=== PATIENT | male | born 1995 | race Caucasian/White ===

== ENCOUNTER 2021-01-06 01:38 | Emergency (ER) | payer OTHER ==
[~2021-01-06] VITALS: Ht 172.7 cm; Wt 170.0 kg
[2021-01-06 02:50] LABS: BASOPHILS % (AUTO) 0 % (0-10); EOSINOPHILS # (AUTO) 0.4 10^3/uL (0.0-0.3); EOSINOPHILS % (AUTO) 4 % (0-10); HEMATOCRIT 43 % (40-54); HEMOGLOBIN 13.4 g/dL (13.3-17.7); LYMPHOCYTES # (AUTO) 3.1 10^3/uL (1.0-4.0); LYMPHOCYTES % (AUTO) 35 % (12-44); MEAN CORPUSCULAR HEMOGLOBIN 27 pg (25-34); MEAN CORPUSCULAR HGB CONC 32 g/dL (32-36); MEAN CORPUSCULAR VOLUME 84 fL (80-99); MEAN PLATELET VOLUME 11.1 fL (9.0-12.2); MONOCYTES # (AUTO) 0.6 10^3/uL (0.0-1.0); MONOCYTES % (AUTO) 7 % (0-12); NEUTROPHILS # (AUTO) 4.8 10^3/uL (1.8-7.8); NEUTROPHILS % (AUTO) 54 % (42-75); PLATELET COUNT 255 10^3/uL (130-400)
[2021-01-06 02:54] LABS: ALBUMIN 4.1 GM/DL (3.2-4.5)
--- NOTE | 2021-01-06 02:54 | ED Cardiac General ---
History of Present Illness General Chief Complaint: Cardiac/General Problems Stated Complaint: CHEST FLUTTER,MIGRAINE,SOB Nursing Triage Note: TO ED VIA POV AND AMBULATORY TO ROOM 8 WITH C/O CHEST FEELS "FLUTTERY" SINCE YESTERDAY SOMETIME, COULD NOT GIVE SPECIFIC TIMEFRAME AND BILATERAL SWOLLEN FEET. Source: patient Exam Limitations: no limitations History of Present Illness Date Seen by Provider: January 06, 2021 Time Seen by Provider: 02:24 Initial Comments Patient presents ER by private conveyance from home with chief complaint for the past 4 hours has been having some flutters like butterflies across the top of his chest. He said he has not had this before. He does not have a history of heart or lung disease. No shortness of air presently. He still having some of these palpitations during his ER stay at nursing reports were not captured on telemetry or EKG. He has not followed with a doctor for about 2 years. He used to be on medications for ADHD and depression. He has not followed with a doctor since moving here from [place]. He says he wanted to go to school so he came to the area but has not completed his GED. He is not having any nausea sweats fever chills diarrhea or constipation. He also is concerned about the swelling in his feet that he recently noticed. He does not smoke and has no known history of heart disease, hyperlipidemia, hypertension, diabetes. Allergies and Home Medications Allergies Coded Allergies: No Known Drug Allergies (Unverified , 01/06/21) Patient Home Medication List Home Medication List Reviewed: Yes Review of Systems Review of Systems Constitutional: No chills, No fever EENTM: No Eye Pain, No Ear Pain Respiratory: Denies Cough, Denies Shortness of Air Cardiovascular: See HPI; Denies Chest Pain, Denies Lightheadedness; Palpitations Gastrointestinal: Denies Abdominal Pain, Denies Nausea Genitourinary: Denies Burning, Denies Discharge Musculoskeletal: No back pain, No joint pain All Other Systems Reviewed Negative Unless Noted: Yes Past Fxzmnbl-Zfwrfl-Gqcsot Hx Patient Social History Alcohol Use: Rarely Uses Smoking Status: Never a Smoker Recent Infectious Disease Expo: No Past Medical History Surgeries: Yes Tonsillectomy Respiratory: No Cardiac: No Neurological: No Genitourinary: No Gastrointestinal: No Musculoskeletal: No Endocrine: No HEENT: No Cancer: No Psychosocial: Yes ADD/ADHD, Depression Integumentary: No Blood Disorders: No Physical Exam Vital Signs Vital Signs - First Documented 01/06/21 02:06 Temp 36.8 Pulse 99 Resp 20 B/P (MAP) 179/97 (124) O2 Delivery Room Air Capillary Refill : Less Than 3 Seconds Height, Weight, BMI Height: '" Weight: lbs. oz. kg; 56.00 BMI Method: General Appearance: No Apparent Distress (Pleasant), Obese (Morbidly obese) HEENT: PERRL/EOMI, Pharynx Normal, Moist Mucous Membranes Neck: Full Range of Motion, Normal Inspection Respiratory: Lungs Clear, Normal Breath Sounds, No Accessory Muscle Use, No Respiratory Distress Cardiovascular: Regular Rate, Rhythm, No Edema (Bilateral lower extremities were consistent with the rest of his body habitus and no edema is appreciated on clinical exam), Normal Peripheral Pulses Gastrointestinal: Normal Bowel Sounds, Non Tender, Soft Extremity: Normal Capillary Refill, Normal Inspection, No Pedal Edema Neurologic/Psychiatric: Alert, Oriented x3 Skin: Normal Color, Warm/Dry Progress/Results/Core Measures Results/Orders Lab Results Laboratory Tests Test 01/06/21 02:05 01/06/21 02:47 Range/Units White Blood Count 9.0 4.3-11.0 10^3/uL Red Blood Count 5.04 4.30-5.52 10^6/uL Hemoglobin 13.4 13.3-17.7 g/dL Hematocrit 43 40-54 % Mean Corpuscular Volume 84 80-99 fL Mean Corpuscular Hemoglobin 27 25-34 pg Mean Corpuscular Hemoglobin Concent 32 32-36 g/dL Red Cell Distribution Width 14.3 10.0-14.5 % Platelet Count 255 130-400 10^3/uL Mean Platelet Volume 11.1 9.0-12.2 fL Immature Granulocyte % (Auto) 0 % Neutrophils (%) (Auto) 54 42-75 % Lymphocytes (%) (Auto) 35 12-44 % Monocytes (%) (Auto) 7 0-12 % Eosinophils (%) (Auto) 4 0-10 % Basophils (%) (Auto) 0 0-10 % Neutrophils # (Auto) 4.8 1.8-7.8 10^3/uL Lymphocytes # (Auto) 3.1 1.0-4.0 10^3/uL Monocytes # (Auto) 0.6 0.0-1.0 10^3/uL Eosinophils # (Auto) 0.4 H 0.0-0.3 10^3/uL Basophils # (Auto) 0.0 0.0-0.1 10^3/uL Immature Granulocyte # (Auto) 0.0 0.0-0.1 10^3/uL Sodium Level 142 135-145 MMOL/L Potassium Level 3.7 3.6-5.0 MMOL/L Chloride Level 105 98-107 MMOL/L Carbon Dioxide Level 27 21-32 MMOL/L Anion Gap 10 5-14 MMOL/L Blood Urea Nitrogen 14 7-18 MG/DL Creatinine 0.94 0.60-1.30 MG/DL Estimat Glomerular Filtration Rate > 60 BUN/Creatinine Ratio 15 Glucose Level 113 H 70-105 MG/DL Calcium Level 9.4 8.5-10.1 MG/DL Corrected Calcium 9.3 8.5-10.1 MG/DL Total Bilirubin 0.3 0.1-1.0 MG/DL Aspartate Amino Transf (AST/SGOT) 25 5-34 U/L Alanine Aminotransferase (ALT/SGPT) 47 0-55 U/L Alkaline Phosphatase 66 40-136 U/L Troponin I < 0.028 <0.028 NG/ML Total Protein 7.4 6.4-8.2 GM/DL Albumin 4.1 3.2-4.5 GM/DL B-Type Natriuretic Peptide 12.0 <100.0 PG/ML My Orders Orders - HARLEY,JEREMÍAS J Cbc With Automated Diff (01/06/21 02:33) Comprehensive Metabolic Panel (01/06/21 02:33) Ekg Tracing (01/06/21 02:33) Continuous Ekg Monitoring (01/06/21 02:33) BNP (01/06/21 02:47) Troponin I (01/06/21 02:47) Chest 1 View, Ap/Pa Only (01/06/21 02:56) Vital Signs/I&O 01/06/21 02:06 Temp 36.8 Pulse 99 Resp 20 B/P (MAP) 179/97 (124) O2 Delivery Room Air Blood Pressure Mean: 124 Progress Progress Note : Time: 02:53 Progress Note He is not having chest pain and does not appear to have any edema at this time. We did discuss gravity dependent edema and management techniques if he notices some edema. With his history of untreated depression we discussed anxiety but he declines that he has ever been told he has anxiety or panic attacks. He states he is having the flutters in his chest but is not having anything on telemetry. We discussed possibility of GI being a source of his symptoms and we will check some labs and if these are okay as well as a chest x-ray then we will allow him to follow-up outpatient and set up care with a primary care provider. Because of his intermittent palpitations he would like to see a regional operations director so we will give referral. Initial ECG Impression Date: January 06, 2021 Initial ECG Impression Time: 02:10 Initial ECG Rate: 95 Initial ECG Rhythm: Normal Sinus Initial ECG Intervals: Normal Initial ECG Impression: Normal Initial ECG Comparisson: No Previous ECG Available Comment Normal sinus rhythm without clinically relevant ST changes. Diagnostic Imaging Diagonstic Imaging: Xray Plain Films/CT/US/NM/MRI: chest Comments No acute cardiopulmonary process on 1 view chest x-ray Reviewed: Reviewed by Me Departure Impression Primary Impression: Intermittent palpitations Disposition: 01 HOME, SELF-CARE Condition: Stable Departure-Patient Inst. Decision time for Depature: 03:54 Referrals: JOHNATHAN HENDERSON MD NO,LOCAL PHYSICIAN (PCP) Primary Care Physician Patient Instructions: Palpitations Add. Discharge Instructions: Call Dr. Henderson's clinic in the morning and request follow-up in the next couple weeks. Establish care with a primary care doctor and work on looking for other reasons for palpitations. For severe, unrelenting chest pain, shortness of air or other worrisome symptoms I encourage you to return to the ER for further evaluation. All discharge instructions reviewed with patient and/or family. Voiced understanding. Copy Copies To 1: JOHNATHAN HENDERSON MD, TITUS J January 06, 2021 02:54
[2021-01-06 02:55] LABS: CHLORIDE 105 MMOL/L (98-107); POTASSIUM 3.7 MMOL/L (3.6-5.0); SODIUM 142 MMOL/L (135-145)
[2021-01-06 02:56] LABS: CALCIUM 9.4 MG/DL (8.5-10.1)
[2021-01-06 02:57] LABS: GLUCOSE 113 MG/DL (70-105); TOTAL PROTEIN 7.4 GM/DL (6.4-8.2)
[2021-01-06 02:58] LABS: CARBON DIOXIDE 27 MMOL/L (21-32)
[2021-01-06 02:59] LABS: BILIRUBIN,TOTAL 0.3 MG/DL (0.1-1.0)
[2021-01-06 03:00] LABS: ALKALINE PHOSPHATASE 66 U/L (40-136)
[2021-01-06 03:01] LABS: CREATININE SERUM 0.94 MG/DL (0.60-1.30); GFR ESTIMATED > 60
[2021-01-06 03:02] LABS: BUN/CREATININE RATIO 15
[2021-01-06 03:03] LABS: ALANINE AMINOTRANSFERASE 47 U/L (0-55)
[2021-01-06 04:19] VITALS: BP 146/66
--- NOTE | 2021-01-06 05:25 | Diagnostic Imaging Report ---
INDICATION: Shortness of breath, palpitations Portable chest 3:18 AM Heart size and pulmonary vascularity are normal. Lungs are clear. There are no effusions or pneumothoraces. IMPRESSION: Negative chest Dictated by: Dictated on workstation # [id number]
== END 2021-01-06 04:20 | disposition home or self-care (01) ==
LOC: ER 01:45
DX: R00.2 Palpitations (principal); F32.9 Major depressive disorder, single episode, unspecified; E66.01 Morbid (severe) obesity due to excess calories; Z68.43 Body mass index [BMI] 50.0-59.9, adult
CPT/HCPCS: 36415; 71045; 80053; 83880; 84484; 85025; 93005